=== PATIENT | male | born 1955 | race Caucasian/White ===

== ENCOUNTER → 2019-01-18 | Outpatient (CLI) | payer MEDICARE ==
[2019-01-18 14:21] LABS: HEMATOCRIT 31.3 % (37.9-51.0); HEMOGLOBIN 10.1 g/dL (13.5-17.0); MEAN CORPUSCULAR HEMOGLOBIN 29.7 pg (27.0-33.4); MEAN CORPUSCULAR HGB CONC 32.5 g/dL (32.0-36.0); MEAN CORPUSCULAR VOLUME 92 fl (80-97); PLATELET COUNT 267 10^3/uL (150-450); RED BLOOD COUNT 3.41 10^6/uL (4.35-5.55); RED CELL DISTRIBUTION WIDTH 15.9 % (11.5-14.0); WHITE BLOOD COUNT 14.5 10^3/uL (4.0-10.5)
[2019-01-18 14:47] LABS: ABSOLUTE MONOCYTES # (MANUAL) 0.9 10^3/uL (0.1-1.4); BASOPHILS % (MANUAL) 1 % (0-2); EOSINOPHILS % (MANUAL) 0 % (0-6); LYMPHOCYTES % (MANUAL) 7 % (13-45); MONOCYTES % (MANUAL) 6 % (3-13); SEGMENTED NEUTROPHILS % (MAN) 86 % (42-78); TOTAL CELLS COUNTED 100
[2019-01-18 14:49] LABS: ALANINE AMINOTRANSFERASE 24 U/L (21-72); ALBUMIN 3.1 g/dL (3.5-5.0); ALKALINE PHOSPHATASE 529 U/L (38-126); ANION GAP 10 (5-19); ANISOCYTOSIS SLIGHT; ASPARTATE AMINO TRANSFERASE 38 U/L (17-59); BILIRUBIN,DIRECT 0.6 mg/dL (0.0-0.4); BILIRUBIN,TOTAL 1.2 mg/dL (0.2-1.3); BLOOD UREA NITROGEN 24 mg/dL (7-20); CALCIUM 8.8 mg/dL (8.4-10.2); CARBON DIOXIDE 22 mmol/L (22-30); CHLORIDE 104 mmol/L (98-107); GLUCOSE 110 mg/dL (75-110); PLATELET COMMENT ADEQUATE; POLYCHROMASIA SLIGHT; POTASSIUM 4.1 mmol/L (3.6-5.0); SODIUM 135.6 mmol/L (137-145); TOTAL PROTEIN 6.5 g/dL (6.3-8.2)
== END ==
LOC: OD 13:37
PROVIDERS: ATTEND Surgery
DX: C22.1 Intrahepatic bile duct carcinoma (principal)
CPT/HCPCS: 36415; 80053; 85025

== ENCOUNTER 2019-01-20 23:23 | Emergency (ER) | payer MEDICARE ==
[2019-01-21] MEDS ORDERED: PIPERACILLIN/TAZOBACTAM 4.5 GM VIAL IV ONE ×2 (00:32→08:00)
[2019-01-21] MEDS ORDERED: VANCOMYCIN HCL INJ 1000 MG VIAL IV ONE (00:32)
[2019-01-21] MEDS ORDERED: NORMAL SALINE 500 ML IV ONE (00:33)
--- NOTE | 2019-01-21 00:37 | ER Document Report ---
ED General - General Chief Complaint: Abdominal Pain >50 Stated Complaint: ABDOMINAL PAIN Time Seen by Provider: 01/21/19 00:26 Primary Care Provider: ELIA PARKER MD [Primary Care Provider] - Follow up as needed Notes: Patient is a pleasant 63-year-old male who presents with complaint of possible abdominal wound infection. Patient has history of cholangiocarcinoma. At [facility] the call center he had partial resection of his liver on December 24. Patient said he has been doing well until few days ago he started no some swelling of the anterior abdomen. He has had subjective fevers at home with chills and sweats. Today he is having some discharge from his abdominal incision site and then a large amount of pus came out suddenly from the incision site. No vomiting. No diarrhea. Patient's blood pressure is hypotensive in triage with systolic in the 80s. Patient said this is actually his normal blood pressure since he had a partial embolization of his liver. Patient says his blood pressure ranges anywhere from the upper 70s to the mid 90s systolically. No other complaints at this time. TRAVEL OUTSIDE OF THE [place] IN LAST 30 DAYS: No - Related Data Allergies/Adverse Reactions: cephalexin [From Keflex] Allergy (Verified 01/21/19 04:43) Penicillins Allergy (Verified 01/21/19 04:43) norepinephrine [From Levophed (bitartrate)] Adverse Reaction (Verified 01/21/19 07:54) Past Medical History - Social History Smoking Status: Unknown if Ever Smoked Frequency of alcohol use: None Drug Abuse: None Family History: Reviewed & Not Pertinent Review of Systems - Review of Systems Notes: My Normal Review Basic REVIEW OF SYSTEMS: CONSTITUTIONAL : Subjective fevers at home. EENT: Denies eye, ear, throat, or mouth pain or symptoms. Denies nasal or sinus congestion. CARDIOVASCULAR: Denies chest pain. RESPIRATORY: Denies cough, cold, or chest congestion. Denies shortness of breath, difficulty breathing, or wheezing. GASTROINTESTINAL: Abdominal pain near abdominal incision site of her ventral abdomen. Denies nausea, vomiting, or diarrhea. MUSCULOSKELETAL: Denies neck or back pain or joint pain or swelling. SKIN: Denies rash or skin lesions. NEUROLOGICAL: Denies altered mental status or loss of consciousness. Denies headache. Denies weakness or paralysis or loss of use of either side. Denies problems with gait or speech. Denies sensory or motor loss. ALL OTHER SYSTEMS REVIEWED AND NEGATIVE. Physical Exam - Vital signs Vitals: Temp Pulse BP Pulse Ox 97.7 F 81 82/46 L 96 01/21/19 00:02 01/21/19 00:02 01/21/19 00:02 01/21/19 00:02 - Notes Notes: General Appearance: Well nourished, alert, cooperative, no acute distress, mild to moderate obvious discomfort. Vitals: reviewed, See vital signs table. Head: no swelling or tenderness to the head Eyes: PERRL, EOMI, Conjuctiva clear Mouth: No decreasd moisture Lungs: No wheezing, No rales, No rhonci, No accessory muscle use, good air exchange bilaterally. Heart: Normal rate, Regular rythm, No murmur, no rub Abdomen: Normal BS, soft, No rigidity, patient has 2 large incisions over his abdomen. There is some obvious purulent drainage on his parents that came from the incision. He still has a small amount of oozing from the incision. No significant surrounding redness or erythema. Extremities: good pulses in all extremities, no swelling or tenderness in the extremities, no edema. Skin: warm, dry, appropriate color, no rash Neuro: speech clear, oriented x 3, normal affect, responds appropriately to questions. Course - Re-evaluation Re-evalutation: 01/21/19 03:59 For IV fluids patient blood pressure started to drift down into the low 70s in the upper 60s. This is much below what his normal baseline is. Therefore place a central line in the right IJ started on Levophed. Immediately after starting Levophed patient went into a bradycardic junctional rhythm. I therefore stopped the levo fed. Patient's heart rate is now back into the 60s. Blood pressure started falling and now that he is off the Levophed and therefore will order an epi drip to be started. 01/21/19 04:16 I have called to speak with the surgeon at [facility]. Transfer center to me that the surgical ICU agrees to accept the patient but wants me speak with the surgeon first. I am waiting to hear back from the surgeon to inform them the patient's condition. 01/21/19 06:31 Reevaluation patient is still having some pain. He said the fentanyl initially did help but the pain is coming back. I have ordered some more fentanyl for him. His blood pressure is responding well to the epi drip. We have not had to increase it above the 3 mcg a minute. Little although I did get to speak with Dr. Alexandra. This is a surgeon covering for Dr. Parker at [facility]. He agreed to accept the patient. He said if there is can be a long delay in ravi sfer than he would recommend having interventional radiology evaluate the patient for IR drainage of the abscess. We have been told there is a room assignment. They said that they are having the room cleaned and then they would allow us to arrange transport. If we are able to arrange for flight here soon within the next few hours then we will hold off on calling IR as the interventional radiologist usually have to come from [place] and it usually is a few hours before they can get her to do a procedure. We would not want to delay the patient's transport for that procedure. If it looks as if transportation can be delayed several hours and I will definitely call the interventional radiologist to request that they come and consider IR drainage of the abscess. Dictation of this chart was performed using voice recognition software; therefore, there may be some unintended grammatical errors. 01/21/19 07:36 We finally heard back inviting about transport situation. They said that they would not be able to fly except thunderstorms. They said that ground transport would probably be at least 3 hours. I therefore have spoken with the red clinical data assistant, Charles, who said he would speak with the radiologist about coming to do IR draining of the abscess. 01/21/19 08:08 I heard back from Saúl who is a psychological assistant. He says that Dr. Messina, Interventional Radiologist, looked at the CT scan and says that it is a complex past to get to the abscess and she does not feel that she can safely do it here. We therefore will continue to monitor the patient and give him antibiotics and monitor him closely until he is transferred to [facility]. Dictation of this chart was performed using voice recognition software; therefore, there may be some unintended grammatical errors. - Vital Signs Vital signs: Temp Pulse Resp BP Pulse Ox 97.8 F 81 17 102/68 100 01/21/19 07:32 01/21/19 00:02 01/21/19 07:40 01/21/19 07:40 01/21/19 07:40 - Laboratory Result Diagrams: 01/21/19 00:35 01/21/19 00:35 Laboratory results interpreted by me: 01/21/19 01/21/19 01/21/19 00:35 00:35 00:35 WBC 11.7 H RBC 3.02 L Hgb 9.0 L Hct 27.5 L RDW 15.5 H Seg Neutrophils % 85.2 H Lymphocytes % 5.7 L Absolute Neutrophils 10.0 H BUN 38 H Creatinine 1.78 H Est GFR ( Amer) 47 L Est GFR (Non-Af Amer) 39 L Glucose 139 H Lactic Acid 2.8 H Direct Bilirubin 0.6 H Alkaline Phosphatase 402 H Total Protein 6.2 L Albumin 2.9 L - EKG Interpretation by Me Additional EKG results interpreted by me: 01/21/19 05:04 EKG is reviewed and interpreted by me. EKG shows sinus rhythm with rate of [address] segment elevation or depression. No ischemic T wave inversions. KS interval, QRS duration, QT intervals are within normal range. Procedures - Central Line Right Internal jugular Consent obtained: Yes Central line pre-insertion: Chloraprep applied Central line lumen type: Triple Anesthetic type: 1% Lidocaine mL's of anesthesia: 2 Ultrasound guided: Yes CM at insertion site: 15 Line secured with sutures: Yes Central line post-insertion: Blood return from lumens, Biopatch applied, Sutured, Sterile dressing applied, Position confirmed w/ CXR Number of attempts: 1 Complications: No Critical Care Note - Critical Care Note Total time excluding time spent on procedures (mins): 45 Comments: Critical care time for this patient not including time spent in procedures approximately 45 minutes due to frequent re-evaluations, management of hypotension, management of infection, resuscitation. Discharge - Discharge Clinical Impression: Postoperative abscess Condition: Stable Disposition: [facility] Referrals: ELIA PARKER MD [Primary Care Provider] - Follow up as needed
[2019-01-21 00:53] LABS: ABSOLUTE BASOPHILS # (AUTO) 0.1 10^3/uL (0.0-0.2); ABSOLUTE LYMPHOCYTES (AUTO) 0.7 10^3/uL (0.5-4.7); BASOPHILS % (AUTO) 0.7 % (0-2); EOSINOPHILS % (AUTO) 0.3 % (0-6); HEMATOCRIT 27.5 % (37.9-51.0); LYMPHOCYTES % (AUTO) 5.7 % (13-45); MEAN CORPUSCULAR HEMOGLOBIN 29.9 pg (27.0-33.4); MEAN CORPUSCULAR HGB CONC 32.9 g/dL (32.0-36.0); MEAN CORPUSCULAR VOLUME 91 fl (80-97); MONOCYTES % (AUTO) 8.1 % (3-13); PLATELET COUNT 247 10^3/uL (150-450); RED BLOOD COUNT 3.02 10^6/uL (4.35-5.55); RED CELL DISTRIBUTION WIDTH 15.5 % (11.5-14.0); SEGMENTED NEUTROPHILS % (AUTO) 85.2 % (42-78); TOTAL CELLS COUNTED % (AUTO) 100 %; WHITE BLOOD COUNT 11.7 10^3/uL (4.0-10.5)
[2019-01-21 01:11] LABS: ALANINE AMINOTRANSFERASE 24 U/L (21-72); ALBUMIN 2.9 g/dL (3.5-5.0); ALKALINE PHOSPHATASE 402 U/L (38-126); ANION GAP 9 (5-19); ASPARTATE AMINO TRANSFERASE 40 U/L (17-59); BILIRUBIN,DIRECT 0.6 mg/dL (0.0-0.4); BILIRUBIN,TOTAL 0.8 mg/dL (0.2-1.3); BLOOD UREA NITROGEN 38 mg/dL (7-20); CALCIUM 8.7 mg/dL (8.4-10.2); CARBON DIOXIDE 24 mmol/L (22-30); CHLORIDE 106 mmol/L (98-107); GLUCOSE 139 mg/dL (75-110); POTASSIUM 3.7 mmol/L (3.6-5.0); TOTAL PROTEIN 6.2 g/dL (6.3-8.2)
[2019-01-21] MEDS ORDERED: NORMAL SALINE 1000 ML 1,000 ML IV ONE (01:55)
[2019-01-21] MEDS ORDERED: DEXTROSE 5%-WATER 250 ML with NOREPINEPHRINE BITARTRATE 4 MG IV PRN ×2 (03:12)
[2019-01-21] MEDS ORDERED: NOREPINEPHRINE BITARTRATE INJ/PF 4 MG/4 ML SDV IV ONE (03:15)
[2019-01-21] MEDS ORDERED: DEXTROSE 5%-WATER 250 ML with EPINEPHRINE/PF 1 MG IV PRN ×2 (03:59)
[2019-01-21] MEDS ORDERED: EPINEPHRINE INJ/PF 1 MG/1 ML AMPULE ONE ×2 (04:14→09:08)
--- NOTE | 2019-01-21 04:14 | RADIOLOGY REPORT (SQ) ---
CT abdomen and pelvis with contrast on 01/21/2019 at 2:38 AM CLINICAL INDICATION: Postoperative abscess, recent partial hepatic resection one month ago, mid to upper abdominal pain TECHNIQUE: Multiple axial images are obtained throughout the abdomen and pelvis following the administration of IV contrast. This exam was performed according to our departmental dose-optimization program, which includes automated exposure control, adjustment of the mA and/or kV according to patient size and/or use of iterative reconstruction technique. Total DLP is 494.1 mGy*cm. COMPARISON: None FINDINGS: Abdomen: There is a small to moderate-sized right pleural effusion. There is mild adjacent right basilar atelectasis. The patient is status post right hepatic resection. There is extraluminal air and fluid under the right hemidiaphragm and adjacent to the operative site consistent with abscess. The largest portion of this on axial image 13 measures 6.8 x 6.1 x 5.9 cm. There are smaller areas extending more anteriorly and inferiorly along the liver edge and anterior peritoneum. There is air and fluid in the patient's midline subcutaneous tissues along the incision that appears to be contiguous with the perihepatic abscess. The area of continuity appears to be visualized on axial image 36 and seen well on coronal image 14. All of these perihepatic and midline subcutaneous fluid collections may be contiguous. Would recommend drainage placement. Multiple bilateral renal cysts are noted. There is a 2.5 cm indeterminate left adrenal nodule measuring 37 Hounsfield units that is favored to be an adenoma. Would recommend one-year follow-up adrenal washout protocol CT. Pneumobilia is noted. Left ureteral stent appears in good position. Solid abdominal organs are otherwise unremarkable. Vascular calcifications are noted. There is no abdominal adenopathy. The abdominal portion of the GI tract is unremarkable. Pelvis: There is some bladder wall thickening raising question of cystitis, recommend correlation with urinalysis. There is enlargement of the median lobe of the prostate that bulges along the bladder base, recommend correlation with physical exam and PSA levels. There is no pelvic adenopathy. Pelvic portion of the GI tract is unremarkable. Degenerative changes and levoscoliosis is noted in the spine. IMPRESSION: 1. Perihepatic air and fluid collections consistent with abscess that appears to be contiguous with air and fluid collection in the right anterior peritoneum that extends into the patient's midline incision site. Recommend drainage. 2. Prostate enlargement. 3. Bladder wall thickening raising question of cystitis, recommend correlation with urinalysis. 4. Left adrenal nodule favored to represent adenoma but with follow-up as recommended above.
--- NOTE | 2019-01-21 04:45 | RADIOLOGY REPORT (SQ) ---
Chest single view on 01/21/2019 at 3:49 AM CLINICAL INDICATION: Central line placement COMPARISON: None FINDINGS: There is mild elevation of the right hemidiaphragm. Right IJ central venous catheter tip is in the SVC. There is no pneumothorax. Multiple overlying wires are noted. Tubing is noted overlying the right lower lateral chest. The lungs are clear. Cardiac, hilar and mediastinal contours are within normal limits. Pulmonary vascularity is within normal limits. Degenerative changes are noted in the right shoulder. IMPRESSION: No acute disease.
[2019-01-21] MEDS ORDERED: FENTANYL CITRATE INJ/PF 100 MCG/2 ML AMPUL IV ONE ×5 (05:10→10:15)
[2019-01-21] MEDS ORDERED: FENTANYL CITRATE INJ/PF 100 MCG/2 ML AMPUL ONE (06:31)
[2019-01-21] MEDS ORDERED: MORPHINE SULFATE 10 MG/ML INJ IV ONE (10:12)
[2019-01-21] MEDS ORDERED: ONDANSETRON HCL INJ/PF 4 MG/2 ML SDV IV ONE (10:12)
--- NOTE | 2019-01-21 10:14 | ER Document Report ---
Doctor's Note Notes: 01/21/19 10:12 Care of this patient was turned over to me at the beginning of my shift. In short this patient has an intra-abdominal abscess status post partial hepatectomy. He was receiving IV antibiotics. He was awaiting transfer to the [facility]. I went and evaluated the patient. He states his pain was returning. He stated treatments earlier were only lasting for a few minutes. Unfortunately, his blood pressure is low, and flight crew is concerned about the possibility of giving him a longer acting narcotic. I did go ahead and order fentanyl 75 mcg. Patient transferred in stable condition.
[2019-01-21 10:28] VITALS: BP 107/69
== END 2019-01-21 10:20 | disposition short-term general hospital (02) ==
LOC: ER 23:23
PROC: 05HM33Z Insertion of Infusion Device into Right Internal Jugular Vein, Percutaneous Approach (ICD-10-PCS; principal; 2019-01-20)
DX: T81.42XA Infection following a procedure, deep incisional surgical site, initial encounter (principal); R10.9 Unspecified abdominal pain; R50.9 Fever, unspecified; R19.09 Other intra-abdominal and pelvic swelling, mass and lump; Z98.890 Other specified postprocedural states; I95.81 Postprocedural hypotension
CPT/HCPCS: 96376; 99285; 96361; 96374; 96375; 36415; 87040; 87070; 87205; 85025; 87075; 87077; 80053; 87186; 83605; 71045; 74177; 36556; C1751; J0171; J3010; J3490; J7060; J7030; J7040; J3370; J2543